=== PATIENT | male | born 1965 | race Caucasian/White ===

== ENCOUNTER 2024-07-30 05:48 | Day surgery (SDC) | payer OTHER ==
[~2024-07-30] VITALS: Ht 182.9 cm; Wt 81.8 kg
[~2024-07-30 05:48] MED LIST: ALLEGRA ALLERG180 MG PO; ATIVAN1 MG PO; LACTATED RINGER'S 1,000 ML IV SCH
[2024-07-30 06:05] VITALS: BP 127/90
[2024-07-30] MEDS ORDERED: KETOROLAC TROMETHAMINE 30 MG/ML VIAL ONE ×2 (06:08→06:58)
[2024-07-30] MEDS ORDERED: MIDAZOLAM HCL 2 MG/2 ML VIAL ONE (06:39)
[2024-07-30] MEDS ORDERED: LIDOCAINE HCL 2% 5 ML SDV ONE (06:40)
[2024-07-30] MEDS ORDERED: propofoL 200 MG/20 ML VIAL ONE (06:40)
[2024-07-30] MEDS ORDERED: fentaNYL citrate 100 MCG/2 ML VIAL ONE (06:40)
[2024-07-30] MEDS ORDERED: ACETAMINOPHEN 1,000 MG/100 ML VIAL ONE (06:41)
[2024-07-30] MEDS ORDERED: ondansetron HCL 4 MG/2 ML VIAL ONE (06:58)
[2024-07-30] MEDS ORDERED: DEXAMETHASONE SOD PHOS 4 MG/ML VIAL ONE (06:58)
[2024-07-30] MEDS ORDERED: TRANEXAMIC ACID IN NACL,ISO-OS 1,000 MG/100 ML PIGGYBACK IV SCH (07:00)
[2024-07-30] MEDS ORDERED: IBLOOD GLUCOSE TEST STRIP 1 EA TEST VI PRN ×2 (07:00→07:45)
[2024-07-30] MEDS ORDERED: LIDOCAINE HCL 1% 5 ML SDV INJ ONE (07:00)
[2024-07-30] MEDS ORDERED: CEFAZOLIN SODIUM 2 GM/20 ML SYR IV SCH (07:00)
[2024-07-30] MEDS ORDERED: HYDROCODONE/ACETA 7.5/325 TAB PO PRN (07:30)
[2024-07-30] MEDS ORDERED: TRAMADOL HCL 50 MG TAB PO PRN (07:30)
[2024-07-30] MEDS ORDERED: NAPROSYN500 MG PO (07:33)
[2024-07-30] MEDS ORDERED: TRAMADOL HCL50 MG PO (07:33)
--- NOTE | 2024-07-30 07:34 | NUR ---
07/30/24 0734 nIa Solis [id number] PT ARRIVED TO PACU ON 6L VIA MASK, PT HEAD TURNED TO SIDE AND RESP EVEN AND UNLABORED WITH SMALL AMOUNT OF SNORING. RIGHT KNEE PLACED ON PILLOW AND ICE IN PLACE PER MD.
[2024-07-30] MEDS ORDERED: fentaNYL citrate 50 MCG/ML SDV IV PRN (07:45)
[2024-07-30] MEDS ORDERED: ondansetron HCL 4 MG/2 ML VIAL IV PRN (07:45)
[2024-07-30] MEDS ORDERED: NALOXONE HCL 0.4 MG SYR IV PRN (07:45)
[2024-07-30 07:55] VITALS: BP 109/72
--- NOTE | 2024-07-30 07:55 | NUR ---
PT RETURNED TO ON RA, AAOX3, AND ANSWERING QUESTIONS APPROPRIATELY. PTS IN ROOM UPON RETURN. REPORT RECEIVED FROM BIOMEDICAL REPAIR TECHNICIAN AND SURGICAL SITE OBSERVED WITH BIOMEDICAL REPAIR TECHNICIAN. DRSG APPEARS CDI AND ICE IN PLACE TO SURGTICAL SITE. PT WITH RLE ELEVATED AT CHEST LEVEL. PT REPROTS PAIN 1/10 IN R KNEE AND REPORTS THIS TO BE TOLERABLE FOR HIM. VS TAKEN. IV SITE ASSESSED, PATENT, AND INFUSING LR PER ORDERS. PT DENIES NAUSEA WHEN ASKED. PT PROVIDED WITH APPLESAUCE, ICE WATER, AND YESENIA CRACKERS. BED IN LOW POSITION, WHEELS LOCKED, BILAT RAIL IN PLACE FOR SAFETY. CALL LIGHT WITHIN PT REACH. PT ASSISTED WITH ELEVATING HOB TO APPROX 60 DEGREES TO FACILITATE EATING AND DRINKING. REMAINS AT BEDSIDE. ALL QUESTIONS ANSWERED.
[2024-07-30 08:55] VITALS: BP 112/73
--- NOTE | 2024-07-30 09:08 | NUR ---
0850-INTO PTS ROOM FOR ROUTINE REASSESSMENT AND DISCHARGE EDUCATION. REMAINS AT PTS BEDSIDE. PT REPORTS PAIN 2/10 IN R KNEE. PT REPORTS THIS TO BE TOLERABLE AND DECLINES NEED FOR ADDITIONAL PAIN MANAGEMENT INTERVENTION. PT ALSO DENIES NAUSEA WHEN ASKED. VS TAKEN. IV SITE ASSESSED AND SL'D PT IS TAKING PO FOOD AND FLUIDS WELL W/O ISSUES NOTED/REPORTED. SURGICAL SITE OBSERVED AND W/O ANY ACUTE CHANGES NOTED. ICE REMAINS IN PLACE TO R KNEE AND RLE IS ELEVATED AT APPROX HEART LEVEL. DC EDUCATION REVIEWED WITH PT. PT PROVIDED F/U APPT DATE AND TIME, DR. ROGERS AFTER HOURS PHONE NUMBER, AND DR. ROGERS POST-OPERATIVE INSTRUCTIONS FOR KNEE ARTHROSCOPY HANDOUT. DISCUSSED WOUND CARE, COLD THERAPY SAFETY, AND ACTIVITY RESTRICTIONS. ALL QUESTIONS ANSWERED. 0900-PT FEELS HE MAY BE ABLE TO VOID AND WAS ASSISTED IN SITTING ON EOB AND THEN PT WAS ABLE TO WALK ACCROSS HALLWAY TO RESTROOM WITH RN SBA FOR SAFETY. PT ABLE TO VOID APPROX 175ML OF CLR, YELLOW URINE. 0905-PT AMBULATED BACK TO ROOM WITH RN SBA ASSIST AND SITTING ON EOB. AT BEDSIDE WITH PTS PERSONAL BELONINGS. ASSISTING PT IN DRESSING. CALL LIGHT WITHIN PT REACH. 0908- IV REMOVED. TIP APPEARS INTACT. PRESSURE DRSG APPLIED. ICE WATER REFILLED AND ICE PACK ALSO REFILLED. LEFT TO PULL CAR AROUND TO FRONT OF HOSPITAL FOR PTS DISCHARGE HOME.
--- NOTE | 2024-07-30 09:10 | NUR ---
PT DISCHARGED FROM DS VIA WC TO PASSENGER SIDE OF WIFES VEHICLE. ALL PERSONAL BELONINGS TAKEN WITH PT.
[2024-07-30] MEDS ORDERED: SEVOFLURANE 250 ML BTL INH ONE (17:13)
--- NOTE | 2024-07-31 13:10 | OR ---
[facility] [address], [place] [address] Signed DATE OF OPERATION: 07/30/2024 SURGEON: Guilherme Wayne MD PREOPERATIVE DIAGNOSIS: Medial meniscus tear, right knee. POSTOPERATIVE DIAGNOSES: 1. Medial meniscus tear, right knee. 2. Lateral meniscus tear, right knee. PROCEDURE PERFORMED: Right knee arthroscopy with partial, medial and lateral meniscectomies. SECOND BUTLER: None. ANESTHESIA: General. BLOOD LOSS: Minimal. BRIEF HISTORY: Carroll is a 58-year-old gentleman with pain and locking in his knee. MRI was consistent with medial meniscus tear. Risks and benefits of operative treatment were discussed with him. He elected to proceed. Once consent was obtained, he was taken to the operating room. After adequate anesthesia, he was placed on the operating room table. Left leg was flexed, abducted and externally rotated on a well-padded leg edmond. The right was placed in a well-padded proximal leg edmond and prepped and draped in a standard sterile fashion. The portal sites were injected with 0.25% Marcaine with epinephrine. Standard inferolateral and superolateral portals were made and the scope was introduced was introduced in the knee. ARTHROSCOPIC FINDINGS: Moderate synovitis was noted throughout the knee. Medial and lateral gutters were clear. ACL was intact. The patellofemoral surfaces showed grade 2 to slight areas of grade 3 chondromalacia as did the medial femoral condyle. The remainder of the articular surfaces were intact. The medial meniscus showed a large medial meniscus tear starting at the mid medial portion extending posteriorly with a large flap that was Electronically Signed By: GUILHERME WAYNE MD 07/31/24 1310 PATIENT NAME: CARROLL MARCELO OPERATIVE REPORT DATE OF : 69 REPORT #: [id number] PHYSICIAN: GUILHERME WAYNE MD PCP: NO PRIMARY CARE PHYSICIAN REPORT IS CONFIDENTIAL AND NOT TO BE RELEASED WITHOUT AUTHORIZATION [facility] [address], [place] [address] Signed folded up underneath the inferior aspect of the meniscus. The lateral meniscus showed a 1 cm radial tear at the mid lateral portion. DESCRIPTION OF OPERATION: The standard inferomedial portal was established using a spinal needle. The straight and curved biters were then used to trim both meniscus tears back to a stable rim. The shaver was then used to feather these out and remove the debris. Once this was accomplished, the scope was withdrawn and portals were closed with 3-0 nylon. Knee was injected with 60 mg of Toradol. The wounds were dressed with Adaptic, ABD, and Guevara wrap. He tolerated the procedure well. All sponge, needle, and instrument counts were correct. Guilherme Wayne MD BA/SOFIL /[id number] Copies: ~ Electronically Signed By: GUILHERME WAYNE MD 07/31/24 1310 PATIENT NAME: CARROLL MARCELO OPERATIVE REPORT DATE OF : 69 REPORT #: [id number] PHYSICIAN: GUILHERME WAYNE MD PCP: NO PRIMARY CARE PHYSICIAN REPORT IS CONFIDENTIAL AND NOT TO BE RELEASED WITHOUT AUTHORIZATION
== END 2024-07-30 09:10 | disposition home or self-care (01) ==
LOC: DS 05:48
PROVIDERS: ATTEND Specialist
PROC: 0SBC4ZZ Excision of Right Knee Joint, Percutaneous Endoscopic Approach (ICD-10-PCS; 2024-07-30)
PROC: 0SBC4ZZ Excision of Right Knee Joint, Percutaneous Endoscopic Approach (ICD-10-PCS; principal; 2024-07-30 07:00)
DX: S83.241A Other tear of medial meniscus, current injury, right knee, initial encounter (principal); S83.281A Other tear of lateral meniscus, current injury, right knee, initial encounter; M22.41 Chondromalacia patellae, right knee; M17.11 Unilateral primary osteoarthritis, right knee; Z86.14 Personal history of Methicillin resistant Staphylococcus aureus infection; Z79.899 Other long term (current) drug therapy; Z88.2 Allergy status to sulfonamides; Z88.5 Allergy status to narcotic agent; Z88.6 Allergy status to analgesic agent; X58.XXXA Exposure to other specified factors, initial encounter
CPT/HCPCS: 01400; J0131; J0690; J1100; J1885; J2003; J2250; J2405; J2704; J3010; J7121